=== PATIENT | female | born 1945 | race Caucasian/White ===

== ENCOUNTER 2017-02-13 10:05 | Outpatient (CLI) | payer MEDICARE, BC ==
--- NOTE | 2017-02-13 12:26 | MMO ---
BILATERAL SCREENING MAMMOGRAM: INDICATION: Annual exam. COMPARISON: Prior exam dated 12/01/14 and 11/15/14. FINDINGS: The interpretation of this examination was assisted with computer-aided detection. There are scattered fibroglandular elements bilaterally. There are stable nodular densities with benign-appearing calcifications within the left and right br easts. No suspicious mass, cluster of microcalcifications, or area of architectural distortion is evident. IMPRESSION: BI-RADS category 2 - benign. Recommend routine annual mammographic screening. POS: BLAS
== END 2017-02-13 10:06 | disposition home or self-care (01) ==
LOC: MAMMO 10:05
PROVIDERS: ATTEND Family Medicine
DX: Z12.31 Encounter for screening mammogram for malignant neoplasm of breast (principal)
CPT/HCPCS: 77067; G0202

== ENCOUNTER 2017-03-15 12:28 | Emergency (ER) | payer MEDICARE, BC ==
[2017-03-15 13:17] LABS: #Basophils 0.1 thou/uL (0.0-0.2); #Eosinphils 0.1 thou/uL (0.0-0.7); #Lymphocytes 2.5 thou/uL (1.20-3.40); #Monocytes 0.7 thou/uL (0.11-0.59); #Neutrophils 9.2 thou/uL (1.40-6.50); %Basophils 0.7 % (0.0-1.0); %Eosinophils 0.5 % (0.0-10.0); %Lymphocytes 20.1 % (21.0-51.0); %Monocytes 5.4 % (0.0-10.0); Hematocrit 39.9 % (36.0-47.0); Mean Platelet Volume 7.8 fL (7.4-10.4); White Blood Cell (WBC) Count 12.5 thou/uL (4.8-10.8)
[2017-03-15 13:37] LABS: ALT (SGPT) 34 U/L (8-55); AST (SGOT) 22 U/L (5-34); Alkaline Phosphatase 72 U/L (40-150); Anion Gap 17 mmol/L (10-20); BUN (Urea Nitrogen) 11 mg/dL (9.8-20.1); Bilirubin, Total 0.6 mg/dL (0.2-1.2); CK (CPK) 72 U/L (29-168); Calc. Creatinine Clearance 0 mL/min (70-130); Calcium 9.6 mg/dL (7.8-10.44); Carbon Dioxide 22 mmol/L (23-31); Chloride 99 mmol/L (98-107); Estimated GFR-MDRD 79; Globulin 3.4 g/dL (2.4-3.5); Lipase 14 U/L (8-78); Protein, Total 7.5 g/dL (6.0-8.3)
[2017-03-15 13:41] LABS: Troponin I Less than 0.010 ng/mL (< 0.028)
[2017-03-15] MEDS ORDERED: Ondansetron HCl/PF 4 MG/2 ML Vial ONE (13:42)
[2017-03-15] MEDS ORDERED: Morphine 10 MG/ML VIAL ONE (13:42)
--- NOTE | 2017-03-15 15:40 | CT ---
CT ANGIOGRAM THORAX WITH IV CONTRAST AND 3D RECONSTRUCTIONS CT ANGIOGRAM ABDOMEN WITH IV CONTRAST AND 3D RECONSTRUCTIONS: DATE: 03/15/17. HISTORY: Acute epigastric pain that began this morning. The patient describes the pain as sharp and constant radiating to the mid back. COMPARISON: None available. FINDINGS: There are no filling defects seen in the pulmonary arteries to suggest a pulmonary embolus. The thoracic and abdominal aorta are normal in caliber without evidence of an aortic dissection. Th ere is normal arrangement of the great vessels at the aortic arch which are patent. The celiac, superior mesenteric, and inferior mesenteric arteries are patent. There are 2 patent re nal arteries bilaterally, although the origin of the inferior left renal accessory artery is not wel l seen at the origin due to dense calcification. The common iliac arteries are patent bilaterally. Minimal scattered vascular calcifications are seen in the thoracic and abdominal aorta. There is an approximately 5 mm noncalcified pulmonary nodule at the posterior medial left lung base (image 56). There is dependent atelectasis bilaterally. The lungs are otherwise clear. No pleural effusion is present. Mild degenerative changes are seen in the spine. Laminectomy defect is seen at the L5-S1 level. There is diminished attenuation of the liver which could be related to fatty infiltration which is p robably related to diffuse fatty infiltration with fatty sparing adjacent to the gallbladder. Multi ple gallbladder calculi are visualized. There is borderline bilateral hydronephrosis of uncertain etiology, but this is a symmetric finding. The kidneys otherwise have a normal CT appearance for arterial phase of imaging. The spleen, pancreas, and bilateral adrenal glands demonstrate a normal CT appearance for arterial p hase of imaging. Surgical clips overlie the right lower quadrant. IMPRESSION: 1. No evidence of an aortic dissection or aneurysm involving the thoracic or abdominal aorta. 2. No CT evidence of a pulmonary embolus. 3. Subcentimeter too small to characterize left lower lobe pulmonary nodule. 4. Fatty infiltration of the liver, and liver is enlarged with craniocaudal dimensions measuring 20 cm. 5. Cholelithiasis. 6. Borderline bilateral hydronephrosis of uncertain etiology. POS: BLAS
[2017-03-15] MEDS ORDERED: ISOVUE-370 76%-LOCM 1 ML ONE (15:45)
== END 2017-03-15 15:27 | disposition home or self-care (01) ==
LOC: ERS 12:28
DX: K80.50 Calculus of bile duct without cholangitis or cholecystitis without obstruction (principal); E11.9 Type 2 diabetes mellitus without complications; I10 Essential (primary) hypertension; Z79.899 Other long term (current) drug therapy; Z79.82 Long term (current) use of aspirin; Z79.84 Long term (current) use of oral hypoglycemic drugs
CPT/HCPCS: 36415; 71275; 80053; 82550; 82553; 83690; 84484; 85025; 93005; 96374; 96375; J2270; J2405

== ENCOUNTER 2017-03-19 11:21 | Outpatient (CLI) | payer MEDICARE, BC ==
[2017-03-19 12:13] LABS: #Basophils 0.1 thou/uL (0.0-0.2); #Eosinphils 0.1 thou/uL (0.0-0.7); #Lymphocytes 2.1 thou/uL (1.20-3.40); #Monocytes 0.9 thou/uL (0.11-0.59); #Neutrophils 8.2 thou/uL (1.40-6.50); %Basophils 0.6 % (0.0-1.0); %Eosinophils 1.3 % (0.0-10.0); %Lymphocytes 18.6 % (21.0-51.0); %Monocytes 7.6 % (0.0-10.0); Hematocrit 38.9 % (36.0-47.0); Mean Platelet Volume 7.8 fL (7.4-10.4); White Blood Cell (WBC) Count 11.4 thou/uL (4.8-10.8)
[2017-03-19 12:32] LABS: ALT (SGPT) 30 U/L (8-55); AST (SGOT) 25 U/L (5-34); Alkaline Phosphatase 77 U/L (40-150); Anion Gap 14 mmol/L (10-20); BUN (Urea Nitrogen) 14 mg/dL (9.8-20.1); Bilirubin, Direct 0.5 mg/dL (0.1-0.3); Bilirubin, Total 1.2 mg/dL (0.2-1.2); Calc. Creatinine Clearance 0 mL/min (70-130); Calcium 9.3 mg/dL (7.8-10.44); Carbon Dioxide 25 mmol/L (23-31); Chloride 98 mmol/L (98-107); Estimated GFR-MDRD 71; Globulin 3.6 g/dL (2.4-3.5); Protein, Total 7.6 g/dL (6.0-8.3)
== END 2017-03-19 11:22 | disposition home or self-care (01) ==
LOC: LABBT 11:21
PROVIDERS: ATTEND Surgery
DX: Z01.818 Encounter for other preprocedural examination (principal); K81.0 Acute cholecystitis
CPT/HCPCS: 80053; 80076; 85025

== ENCOUNTER 2017-03-20 11:13 | Day surgery (SDC) | payer MEDICARE, BC ==
[2017-03-20] MEDS ORDERED: Bupivacaine/Epinephrine 0.25% 30 ML VIAL ONE (11:39)
[2017-03-20] MEDS ORDERED: Levofloxacin 500 mg/D5W 100 ml Premix Bag ONE (11:57)
[2017-03-20] MEDS ORDERED: Scopolamine 1.5 mg/72 hour Patch ONE (12:05)
[2017-03-20] MEDS ORDERED: Midazolam HCl 2 mg/2 ml Vial ONE (12:06)
[2017-03-20] MEDS ORDERED: Fentanyl 100 MCG/2 ML VIAL ONE (12:07)
[2017-03-20] MEDS ORDERED: Propofol 200 MG/20 ML VIAL ONE (12:24)
[2017-03-20] MEDS ORDERED: Ondansetron HCl/PF 4 MG/2 ML Vial ONE (12:24)
[2017-03-20] MEDS ORDERED: Metoclopramide HCl 10 MG/2 ML VIAL ONE (12:24)
[2017-03-20] MEDS ORDERED: Labetalol HCl 100 MG/20 ML SYR ONE (12:24)
[2017-03-20] MEDS ORDERED: Dexamethasone 20 MG/5 ML VIAL ONE (12:24)
[2017-03-20] MEDS ORDERED: Lidocaine 1% PF 5 ML VIAL ONE (12:24)
[2017-03-20] MEDS ORDERED: Glycopyrrolate 0.2 MG/ML 5 ML SYRINGE ONE (12:24)
--- NOTE | 2017-03-20 13:39 | OP ---
DATE OF PROCEDURE: 03/20/2017 PREOPERATIVE DIAGNOSIS: Acute cholecystitis. SURGEON: Parag Quinteros M.D. PROCEDURE PERFORMED: Laparoscopic cholecystectomy. INDICATIONS: This is a 72-year-old female who has been having severe right upper quadrant pain radia ting to back, associated with nausea, fever. Ultrasound showed cholelithiasis with thickened gallbla dder wall. FINDINGS: Acute cholecystitis. PROCEDURE: After informed consent was obtained, the patient was taken to the operating room. She wa s given general endotracheal anesthesia. She was placed in the supine position. The abdomen was pre pped and draped in the usual fashion. Local anesthesia infiltrated subcutaneously and deep and a sub umbilical incision was performed. The subcu divided sharply. The fascia grasped and 2 stay sutures of 0 Vicryl placed to either side of midline. Midline incised. Digital palpation revealed no local adhesions. A blunt 10/12 mm trocar inserted. Pneumoperitoneum was created to a pressure of 15 mmHg. A 0 degree laparoscope inserted. Under direct vision, three 5 mm ports placed subcostally. The gal lbladder was inflamed and encased with omentum. The omentum was able to be taken down bluntly to rev eal a distended inflamed, erythematous gallbladder. The gallbladder was punctured with the aspiratin g needle and 60 mL of thick bile removed. This was sent for culture. The gallbladder then grasped a nd advanced superiorly. The peritoneum was dissected distally to dissect out the cystic duct, artery and a critical view. These were triply ligated with Hemoclips and divided. The gallbladder was rem liliana from its fossa utilizing electrocautery, removed from the abdomen in an Endosac through the umbi lical port. Hemostasis was assured. Trocars and retractors removed. The fascia closed with interru pted 0 Vicryl suture. The skin closed with interrupted 4-0 Rapide. Dermabond applied. The patient tolerated the procedure well and was transferred to recovery in good condition. Sponge and needle co unt verified correct x2.
== END 2017-03-20 17:10 | disposition home or self-care (01) ==
LOC: SDC 11:13
PROVIDERS: ATTEND Surgery
PROC: 0FT44ZZ Resection of Gallbladder, Percutaneous Endoscopic Approach (ICD-10-PCS; principal; 2017-03-20)
DX: K80.00 Calculus of gallbladder with acute cholecystitis without obstruction (principal); E11.9 Type 2 diabetes mellitus without complications; I10 Essential (primary) hypertension; K76.0 Fatty (change of) liver, not elsewhere classified; Z88.0 Allergy status to penicillin; Z88.5 Allergy status to narcotic agent; Z88.8 Allergy status to other drugs, medicaments and biological substances; Z88.1 Allergy status to other antibiotic agents; Z90.49 Acquired absence of other specified parts of digestive tract; Z90.710 Acquired absence of both cervix and uterus; Z98.890 Other specified postprocedural states
CPT/HCPCS: 80053; 80076; 85025; 87070; 87205; 88304; J1100; J1956; J2001; J2250; J2405; J2704; J2765; J3010

== ENCOUNTER 2018-03-12 10:37 | Outpatient (CLI) | payer MEDICARE, OTHER | END 2018-03-12 10:38 | disposition home or self-care (01) | LOC: BICMAMMO 10:37 | PROVIDERS: ATTEND Family Medicine | DX: Z12.31 Encounter for screening mammogram for malignant neoplasm of breast (principal); R92.1 Mammographic calcification found on diagnostic imaging of breast | CPT/HCPCS: 77063; 77067 ==

== ENCOUNTER 2019-03-25 12:50 | Outpatient (CLI) | payer MEDICARE ==
--- NOTE | 2019-03-25 14:28 | MMO ---
Bilateral MAMMO Bilat Screen [facility]. CLINICAL HISTORY: Patient is 74 years old and is seen for screening. The patient has no family history of breast cancer. The patient has no personal history of cancer. VIEWS: The views performed were: bilateral craniocaudal with tomosynthesis and bilateral mediolateral oblique with tomosynthesis. FILMS COMPARED: The present examination has been compared to prior imaging studies performed at [facility] on 12/01/2014, 01/02/2016, 02/13/2017 and 03/12/2018. This study has been interpreted with the assistance of computer-aided detection. MAMMOGRAM FINDINGS: There are scattered fibroglandular densities. Benign calcifications are noted bilaterally. There are no suspicious masses, suspicious calcifications, or new areas of architectural distortion. IMPRESSION: THERE IS NO MAMMOGRAPHIC EVIDENCE OF MALIGNANCY. A ROUTINE FOLLOW-UP MAMMOGRAM IN 1 YEAR IS RECOMMENDED. THE RESULTS OF THIS EXAM WERE SENT TO THE PATIENT. ACR BI-RADS Category 2 - Benign finding MAMMOGRAPHY NOTE: 1. A negative mammogram report should not delay a biopsy if a dominant of clinically suspicious mass is present. 2. Approximately 10% to 15% of breast cancers are not detected by mammography. 3. Adenosis and dense breasts may obscure an underlying neoplasm. Reported by: MARSHALL TELLO MD Electonically Signed: [id number]
== END 2019-03-25 12:51 | disposition home or self-care (01) ==
LOC: BICMAMMO 12:50
PROVIDERS: ATTEND Family Medicine
DX: Z12.31 Encounter for screening mammogram for malignant neoplasm of breast (principal)
CPT/HCPCS: 77063; 77067

== ENCOUNTER 2020-05-03 13:02 | Outpatient (CLI) | payer MEDICARE ==
--- NOTE | 2020-05-03 13:46 | MMO ---
Bilateral MAMMO Bilat Screen [facility]. CLINICAL HISTORY: Patient is 75 years old and is seen for screening. The patient has no family history of breast cancer. The patient has no personal history of cancer. VIEWS: The views performed were: bilateral craniocaudal with tomosynthesis and bilateral mediolateral oblique with tomosynthesis. FILMS COMPARED: The present examination has been compared to prior imaging studies performed at [facility] on 01/02/2016, 02/13/2017, 03/12/2018 and 03/25/2019. This study has been interpreted with the assistance of computer-aided detection. MAMMOGRAM FINDINGS: There are scattered fibroglandular densities. There are stable benign appearing calcifications seen in both breasts. There are also vascular calcifications. There are no suspicious masses, suspicious calcifications, or new areas of architectural distortion. IMPRESSION: THERE IS NO MAMMOGRAPHIC EVIDENCE OF MALIGNANCY. A ROUTINE FOLLOW-UP MAMMOGRAM IN 1 YEAR IS RECOMMENDED. THE RESULTS OF THIS EXAM WERE SENT TO THE PATIENT. ACR BI-RADS Category 2 - Benign finding MAMMOGRAPHY NOTE: 1. A negative mammogram report should not delay a biopsy if a dominant of clinically suspicious mass is present. 2. Approximately 10% to 15% of breast cancers are not detected by mammography. 3. Adenosis and dense breasts may obscure an underlying neoplasm. Reported by: CHELSEA FATIMA MD Electonically Signed: [id number]
== END 2020-05-03 13:03 | disposition home or self-care (01) ==
LOC: BICMAMMO 13:02
PROVIDERS: ATTEND Family Medicine
DX: Z12.31 Encounter for screening mammogram for malignant neoplasm of breast (principal)
CPT/HCPCS: 77063; 77067

== ENCOUNTER 2022-03-09 10:27 | Outpatient (CLI) | payer MEDICARE, OTHER | END 2022-03-09 10:28 | disposition home or self-care (01) | LOC: BICMAMMO 10:27 | PROVIDERS: ATTEND Family Medicine | DX: Z12.31 Encounter for screening mammogram for malignant neoplasm of breast (principal) | CPT/HCPCS: 77063; 77067 ==

== ENCOUNTER 2022-06-12 10:21 | Outpatient (CLI) | payer MEDICARE | END 2022-06-12 10:22 | disposition home or self-care (01) | LOC: RAD 10:21 | PROVIDERS: ATTEND Internal Medicine Cardiovascular Disease | DX: R06.02 Shortness of breath (principal) | CPT/HCPCS: 71046 ==

== ENCOUNTER 2023-06-18 09:26 | Outpatient (CLI) | payer MEDICARE | END 2023-06-18 09:27 | disposition home or self-care (01) | LOC: BICMAMMO 09:26 | PROVIDERS: ATTEND Family Medicine | DX: Z12.31 Encounter for screening mammogram for malignant neoplasm of breast (principal); Z13.820 Encounter for screening for osteoporosis; Z78.0 Asymptomatic menopausal state | CPT/HCPCS: 77063; 77067; 77080 ==

== ENCOUNTER 2023-09-27 12:50 | Outpatient (CLI) | payer MEDICARE | END 2023-09-27 12:51 | disposition home or self-care (01) | LOC: ULT 12:50 | PROVIDERS: ATTEND Family Medicine | DX: E04.9 Nontoxic goiter, unspecified (principal) | CPT/HCPCS: 76536; 76999 ==

== ENCOUNTER 2025-03-02 11:28 | Outpatient (CLI) | payer MEDICARE | END 2025-03-02 11:29 | disposition home or self-care (01) | LOC: BICRAD 11:28 | PROVIDERS: ATTEND Family Medicine | DX: R05.3 Chronic cough (principal) | CPT/HCPCS: 71046 ==